=== PATIENT | female | born 1940 | race Caucasian/White ===

== ENCOUNTER 2024-06-11 13:54 | Outpatient (CLI) | payer BC, SELFPAY ==
--- NOTE | 2024-06-11 06:00 | DI.RAD_ITS ---
Exam(s) XR PAIN CLINIC LUMBAR SP 2V EXAM: XR PAIN CLINIC LUMBAR SP 2V CLINICAL HISTORY: DX: Lumbar Spondylosis TECHNIQUE: 2D and realtime digital imaging was performed. Radiologist not present. CONTRAST MATERIAL: None. COMPARISON: No exams were available for comparison FINDINGS: Fluoroscopy was provided for pain management therapy. Lumbar spine steroid injection Please refer to procedure report or details. Radiation Exposure Index: Ka,r=31.54 mGy IMPRESSION: As above. RADIATION DOSE DELIVERED:
[2024-06-11 14:09] VITALS: BP 156/91; PULSE 104; RESP 20; TEMP 36.7; O2SAT 99
--- NOTE | 2024-06-11 14:58 | PDOC.PAIN ---
Date of service: 06/11/24 Time of Service: 15:22 Pain Managment Procedure Note Procedure Note Procedure Note: Diagnostic Lumbar Facet Joint Injection ? Location: Bilateral Lumbar Facet Joints ? Levels: L4-5 ? Pre-procedure Diagnosis: M47.817 Spondylosis without myelopathy or radiculopathy, lumbosacral region M47.816 Spondylosis without myelopathy or radiculopathy, lumbar region ? Post-procedure Diagnosis:? The same as above ? Sedation:? None ? Estimated blood loss:? less than 2 cc ? Surgeon: Eric De Jesus MD COMMENT: Pain 8/10 .Decision was made to proceed with intra-articular facet injections for the possibility of not having to do medial branch blocks and radiofrequency ablation if patient get long lasting relief (> 3 months). ? Procedure Detail:? The procedure and potential risks were explained to the patient and informed written consent was obtained. The patient was escorted to the procedure room and placed in the prone position. Pillows were utilized for proper positioning and comfort.? Time out was performed in the procedure room with nursing staff confirming the patient's identity, procedure to be performed, allergies, and any blood thinning or anti-platelet medications.? Sterile technique was maintained throughout the procedure.? The patient's lumbosacral area was prepped with chlorhexidine and draped in a sterile fashion. Lidocaine 1% was used to anesthetize the skin. An oblique fluoroscopic view was obtained, with visualization of the facet joint.? A 22gauge, Quincke needle was gently advanced through the facet capsule.? Needle placement was confirmed with fluoroscopy in AP, oblique, and lateral views by injecting 0.25cc of contrast.? 20 mg of Depomedrol and 0.5ml of 0.5% bupivacaine was injected into the capsule at L4-5 bilateral.? The patient tolerated the procedure well and was transported to recovery area for observation and discharge instructions. Permanent images saved and recorded. Plan:? Follow up prn COMMENT:Pain went from 8/10 to 0/10. Pain? 100 % better. Will use this as both diagnostic and potentially therapeutic.?Can repeat prn if long lasting. With short-term relief from the level that it was not long-lasting then we will proceed with for LMBB #2 and possible radiofrequency ablation Coding Conscious Sedation used for procedure: No CPT Codes: LMBB (includes Fluoro) Lumbar/Sacral, single lvl *BILATERAL* - [id number] ([id number]~G5) Additional Codes: Date of Service (95373) Date of service: 06/11/24
[2024-06-11 15:03] VITALS: PULSE 109; O2SAT 94
[2024-06-11 15:10] VITALS: PULSE 104
[2024-06-11] MEDS: Omnipaque 240 MG/ML 50 ML BTL IJ (15:32)
[2024-06-11] MEDS: Nerve Block Tray 1 EACH MC (15:32)
[2024-06-11] MEDS: methylPREDNISolone ACETATE 80 MG/ML VIAL IJ (15:32)
[2024-06-11] MEDS: Bupivacaine 0.5% Pres-Free 10 ML VIAL IJ (15:33)
== END 2024-06-11 13:55 | disposition home or self-care (01) ==
PROVIDERS: PCP Family Medicine; Visit Provider Anesthesiology Pain Medicine
DX: M47.817 Spondylosis without myelopathy or radiculopathy, lumbosacral region (principal); M47.816 Spondylosis without myelopathy or radiculopathy, lumbar region
CPT/HCPCS: 64493; 72100; J0665; J1010; Q9967

== ENCOUNTER 2024-11-27 08:43 | Outpatient (CLI) | payer BC, SELFPAY ==
--- NOTE | 2024-11-27 06:00 | DI.RAD_ITS ---
Exam(s) XR PAIN CLINIC LUMBAR SP 2V EXAM: XR PAIN CLINIC LUMBAR SP 2V CLINICAL HISTORY: DX: Lumbar Spondylosis TECHNIQUE: 2D and realtime digital imaging was performed. CONTRAST MATERIAL: Refer to procedure report. COMPARISON: No exams were available for comparison FINDINGS: Fluoroscopy was provided for Dr. Hopkins during the performance of a bilateral lumbar medial branch block. Please refer to the procedure report for complete details. Ka,r=7.8 mGy IMPRESSION: RADIATION DOSE DELIVERED: 0.0 0.0 0
[2024-11-27 08:28] VITALS: BP 164/93; PULSE 98; RESP 18; TEMP 36.4; O2SAT 98
--- NOTE | 2024-11-27 09:23 | PDOC.PAIN ---
Date of service: 11/27/24 Time of Service: 09:52 Pain Managment Procedure Note Procedure Note Procedure Note: Lumbar Medial Branch Block ? Location: Bilateral Medial Branches ? Levels: L3,4,5? (L4-5, L5-S1 FACET) ? Pre-procedure Diagnosis: M47.817 Spondylosis without myelopathy or radiculopathy, lumbosacral region M47.816 Spondylosis without myelopathy or radiculopathy, lumbar region ? Post-procedure Diagnosis:? The same as above ? Sedation: NONE? Estimated blood loss:? less than 2 ml ? Surgeon:? Eric De Jesus MD COMMENT: Patient states she has bilateral L4?5 with only transient relief .She had a CT-guided left-sided SI joint injection without relief. ? Procedure Detail:? The procedure and potential risks were explained to the patient and informed written consent was obtained. The patient was escorted to the procedure room and placed in the prone position. Pillows were utilized for proper positioning and comfort.? Time out was performed in procedure room with nursing staff confirming the patient's identity, procedure to be performed, allergies, and any blood thinning or anti-platelet medications. The patient's lower back was prepped with chlorhexidine and draped in a sterile fashion. Sterile technique was maintained throughout the procedure.? Sterile gloves were used, a face mask was worn, and new single dose vials of all medications were used with the top being swabbed with alcohol and given time to dry prior to withdrawal of medication.? A left AND right-sided oblique fluoroscopic view was obtained, with visualization of the: ?RIGHT and LEFT L3,4 and DORSAL RAMUS L5 AT SACRAL ALA ? junction of the transverse process and superior articular process. Lidocaine 1% was used to anesthetize the skin. A 22-gauge Quincke needle was advanced along the superior margin of the transverse process and lateral to the articular process.? It was directed inferiorly and medially so that the tip struck the junction of the base of the transverse process and the superior articular process. The needle was then walked over the superior aspect of the transverse process and advanced slightly along the course of the L3,4,5 medial branch nerves. Proper placement was verified in A/P, oblique and lateral views under fluoroscopy. At this location, following negative aspiration, 0.5ml 0.5% bupivacaine was injected.? The patient tolerated the procedure well and was transported to the recovery area for observation and discharge instructions. Permanent images saved and recorded. Follow-up:? The patient will return in 2 weeks for confirmatory LMBBs if they? meet the criteria from today's procedure lasting for at least 2 hours.? COMMENT:Pain went from 10/10 to 0/10. Before the patient left patient had greater than 100% pain relief.Consider basivertebral nerve ablation L5-S1 if no relief from medial branch blocks. Coding Conscious Sedation used for procedure: No CPT Codes: LMBB (includes Fluoro) Lumbar/Sacral, single lvl *BILATERAL* - [id number] ([id number]~G5) LMBB (includes Fluoro) Lumbar/Sacral, 2nd lvl - 09490 (5815976 ~G) LT - LEFT SIDE, RT - RIGHT SIDE Additional Codes: Date of Service (42798) Date of service: 11/27/24 Diagnoses: M47.817 Spondylosis without myelopathy or radiculopathy, lumbosacral region M47.816 Spondylosis without myelopathy or radiculopathy, lumbar region
[2024-11-27 09:25] VITALS: PULSE 28; O2SAT 96
[2024-11-27 09:30] VITALS: PULSE 96; O2SAT 97
[2024-11-27 09:40] VITALS: PULSE 100; O2SAT 98
[2024-11-27] MEDS: Bupivacaine 0.5% Pres-Free 10 ML VIAL IJ (09:48)
[2024-11-27] MEDS: Nerve Block Tray 1 EACH MC (09:48)
== END 2024-11-27 08:44 | disposition home or self-care (01) ==
LOC: PC 08:44
PROVIDERS: PCP Family Medicine; Visit Provider Anesthesiology Pain Medicine
DX: M47.816 Spondylosis without myelopathy or radiculopathy, lumbar region (principal); M47.817 Spondylosis without myelopathy or radiculopathy, lumbosacral region
CPT/HCPCS: 64493; 64494; 72100; J0665

== ENCOUNTER 2024-12-11 10:33 | Outpatient (CLI) | payer BC, SELFPAY ==
[2024-12-11 10:00] VITALS: BP 147/93; PULSE 62; RESP 18; TEMP 36.4; O2SAT 98
--- NOTE | 2024-12-11 10:52 | PDOC.PAIN_ITS ---
Date of service: 12/11/24 Time of Service: 11:37 Pain Managment Procedure Note Procedure Note Procedure Note: LUMBAR MEDIAL BRANCH BLOCK #2 Location: Bilateral Medial Branches ? Levels: L3,4,5? (L4-5, L5-S1 FACET) ? Pre-procedure Diagnosis: M47.817 Spondylosis without myelopathy or radiculopathy, lumbosacral region M47.816 Spondylosis without myelopathy or radiculopathy, lumbar region ? Post-procedure Diagnosis:? The same as above ? Sedation: NONE? Estimated blood loss:? less than 2 ml ? Surgeon:? rEic De Jesus MD COMMENT: Patient had? GREATER THAN 80 % relief after the first medial branch block for greater than the duration of the local anesthetic.? PRE PROCEDURE PAIN SCORE: 10 /10 ? Procedure Detail:? The procedure and potential risks were explained to the patient and informed written consent was obtained. The patient was escorted to the procedure room and placed in the prone position. Pillows were utilized for proper positioning and comfort.? Time out was performed in procedure room with nursing staff confirming the patient's identity, procedure to be performed, allergies, and any blood thinning or anti-platelet medications. The patient's lower back was prepped with chlorhexidine and draped in a sterile fashion. Sterile technique was maintained throughout the procedure.? Sterile gloves were used, a face mask was worn, and new single dose vials of all medications were used with the top being swabbed with alcohol and given time to dry prior to withdrawal of medication.? A left and right-sided oblique fluoroscopic view was obtained, with visualization of the: ?RIGHT and LEFT L3,4 and DORSAL RAMUS L5 AT SACRAL ALA ? junction of the transverse process and superior articular process. Lidocaine 1% was used to anesthetize the skin. A 22-gauge Quincke needle was advanced along t he superior margin of the transverse process and lateral to the articular process.? It was directed inferiorly and medially so that the tip struck the junction of the base of the transverse process and the superior articular process. The needle was then walked over the superior aspect of the transverse process and advanced slightly along the course of the L3,4,5 medial branch nerves. Proper placement was verified in A/P, oblique and lateral views under fluoroscopy. At this location, following negative aspiration, 0.5ml 2% lidocaine was injected.? The patient tolerated the procedure well and was discharged home with instructions. Permanent images saved and recorded. Follow-up:?? Will plan to proceed with lumbar medial branch RFA if the patient gets good relief from today's procedure lasting for at least 2 hours. COMMENT:Pain went from 10/10 to 0/10. Before the patient left patient had 100% pain relief.Consider basivertebral nerve ablation L5-S1 if no relief from medial branch blocks or pain persists after RF. Coding Conscious Sedation used for procedure: No CPT Codes: LMBB (includes Fluoro) Lumbar/Sacral, 2nd lvl - 40324 ([id number] ~G) RT - RIGHT SIDE, LT - LEFT SIDE LMBB (includes Fluoro) Lumbar/Sacral, single lvl *BILATERAL* - [id number] (5189348~G5) 50 - BILATERAL PROCEDURE Additional Codes: Date of Service () Diagnoses: M47.817 Spondylosis without myelopathy or radiculopathy, lumbosacral region M47.816 Spondylosis without myelopathy or radiculopathy, lumbar region
[2024-12-11 11:08] VITALS: PULSE 76; O2SAT 93
[2024-12-11 11:10] VITALS: PULSE 73; O2SAT 98
--- NOTE | 2024-12-11 11:12 | DI.RAD_ITS ---
Exam(s) XR PAIN CLINIC LUMBAR SP 2V EXAM: XR PAIN CLINIC LUMBAR SP 2V CLINICAL HISTORY: DX: Lumbar Spondylosis TECHNIQUE: 2D and realtime digital imaging was performed. CONTRAST MATERIAL: Refer to procedure report. COMPARISON: No exams were available for comparison FINDINGS: Fluoroscopy was provided for Dr. De Jesus during the performance of a bilateral lumbar medial branch block. Please refer to the procedure report for complete details. Ka,r=10.5 mGy IMPRESSION: RADIATION DOSE DELIVERED: 0.0 0.0 0
[2024-12-11 11:20] VITALS: PULSE 75; O2SAT 98
[2024-12-11] MEDS: Lidocaine 2% Pres-Free 5 ML VIAL IJ (11:28)
[2024-12-11] MEDS: Nerve Block Tray 1 EACH MC (11:28)
== END 2024-12-11 10:34 | disposition home or self-care (01) ==
LOC: PC 10:34
PROVIDERS: PCP Family Medicine; Visit Provider Anesthesiology Pain Medicine
DX: M47.816 Spondylosis without myelopathy or radiculopathy, lumbar region (principal); M47.817 Spondylosis without myelopathy or radiculopathy, lumbosacral region
CPT/HCPCS: 64493; 64494; 72100

== ENCOUNTER 2024-12-31 12:53 | Outpatient (CLI) | payer BC, SELFPAY ==
[2024-12-31] VITALS (14 sets, daily range): BP systolic 98–186; BP diastolic 73–105; PULSE 67–112; RESP 11–18; TEMP 36.5; O2SAT 93–100
--- NOTE | 2024-12-31 06:00 | DI.RAD_ITS ---
Exam(s) XR PAIN CLINIC LUMBAR SP 2V EXAM: XR PAIN CLINIC LUMBAR SP 2V CLINICAL HISTORY: DX: Lumbar Spondylosis. TECHNIQUE: Fluoroscopy was provided for the referring physician for guidance with performing pain clinic injection procedure. COMPARISON: No exams were available for comparison FINDINGS: Please see procedure note for details. Fluoro time: 59.8 seconds RADIATION DOSE DELIVERED: jerel Polk=28.2 mGy
--- NOTE | 2024-12-31 13:39 | PDOC.PAIN_ITS ---
Date of service: 12/31/24 Time of Service: 14:21 Pain Managment Procedure Note Procedure Note Procedure Note: Lumbar Medial Branch COOLED Radiofrequency Ablation COMMENT: Patient had greater than 80 % relief after 2 medial branch blocks . ? Location: Bilateral L3, and L4 medial Branches and dorsal ramus of L5 (L4-5, and L5-S1 joints) ? Pre-procedure Diagnosis: M47.817 Spondylosis without myelopathy or radiculopathy, lumbosacral region ? Post-procedure Diagnosis:? The same as above ? Sedation:?Intravenous line started 1mg of intravenous midazolam and fentanyl 75 mcg?were administered. An independent trained observer monitored the patient for the duration of the procedure.? Estimated blood loss:? less than 2 ml ? Surgeon: Eric De Jesus MD ? Procedure Detail:? The procedure and potential risks were explained to the patient and informed written consent was obtained. The patient was escorted to the procedure room and placed in the prone position. Pillows were utilized for proper positioning and comfort. Time out was performed in the procedure room with nursing staff confirming the patient's identity, procedure to be performed, allergies, and any blood thinning or anti-platelet medications. The patient's lower back was prepped with ChloraPrep and draped in a sterile fashion.? Sterile technique was maintained throughout the procedure.? Sterile gloves were used, a face mask was worn, and new single dose vials of all medications were used with the top being swabbed with alcohol and given time to dry prior to withdrawal of medication. A left AND right-sided oblique fluoroscopic view was obtained, with visualization of the L4 junction of the transverse process and superior articular process. 2% lidocaine was used to anesthetize the skin. With fluoroscopic guidance, an 17 gauge 4mm active tip RF cannula was advanced to the superior margin of the transverse process and lateral to the superior articular process.? It was directed inferiorly and medially so that the tip struck the junction of the base of the transverse process and the superior articular process. The needle was then slightly advanced along the course of the L3 medial branch nerve. Proper placement was verified with oblique, AP, and lateral fluoroscopic views. Sensory tested with good response less than 1V. Motor testing was performed and was negative at 2V except for expected multifidus activation. A similar procedure was also performed at the ipsilateral L4 medial branch nerves and the dorsal ramus of L5 with negative motor testing at 2V except for expected multifidus activation. 1 ml of 2% lidocaine was injected th rough each needle tip to anesthetize the medial branch nerves.? After waiting for the local anesthetic to take effect, each nerve was then ablated at 60 degrees Celsius for 150 seconds. This was repeated on the opposite side at the same levels. The patient was monitored for any severe pain or radicular pain during the ablation and reported none. The patient tolerated the procedure well, and was discharged in stable condition.? Permanent images were saved and recorded. PAIN: PRE PROCEDURE 06/30 POST PROCEDURE 04/02 Plan: F/U PRN COMMENT: Repeat prn if 6 months relief of 50% Coding Conscious Sedation used for procedure: Yes CPT Codes: Single Facet Joint, Lumbar/Sacral *BILATERAL* - 568891B ([id number]~G) 50 - BILATERAL PROCEDURE Single Facet Joint, Lumbar/Sacral cool each add'l - 14088I (17585H09~G) LT - LEFT SIDE, RT - RIGHT SIDE Moderate sedation; First 15 min - 23768 (39212) Moderate sedation; add. 15 increments - 62530 (95337) Additional Codes: Date of Service () Diagnoses: M47.817 Spondylosis without myelopathy or radiculopathy, lumbosacral region
[2024-12-31] MEDS: fentaNYL 100 MCG/2 ML VIAL IVP ×2 (13:45→14:05)
[2024-12-31] MEDS: Midazolam 2 MG/2 ML VIAL IVP (13:45)
[2024-12-31] MEDS: Nerve Block Tray 1 EACH MC (14:01)
[2024-12-31] MEDS: Lactated Ringers 500 ML 30 ML IV (14:03)
[2024-12-31] MEDS: Lidocaine 2% Multi-Dose 20 ML VIAL IJ (14:23)
== END 2024-12-31 12:54 | disposition home or self-care (01) ==
LOC: PC 12:53
PROVIDERS: PCP Family Medicine; Visit Provider Anesthesiology Pain Medicine
DX: M47.817 Spondylosis without myelopathy or radiculopathy, lumbosacral region (principal)
CPT/HCPCS: 64635; 64636; 72100; J2003; J2250; J3010